=== PATIENT | male | born 1960 | race Caucasian/White ===

== ENCOUNTER 2021-12-08 13:01 | Emergency (ER) | payer MEDICAID, SELFPAY ==
[2021-12-08 13:12] VITALS: BP 123/85; PULSE 74; RESP 16; TEMP 37; O2SAT 99; BMI 22.7
--- NOTE | 2021-12-08 13:15 | XR_ITS ---
FINAL REPORT CLINICAL HISTORY: left rib pain FINDINGS: Two views of the chest were obtained. The heart size is normal. The mediastinum is normal. No acute pulmonary abnormality is identified. There is no pneumothorax. The bony thorax is intact. IMPRESSION: No acute cardiopulmonary process. Reviewed, Interpreted and Dictated by Salty Fernandes III, MD Transcribed by Romulo Parks Authenticated by Salty Fernandes III, MD on 12/08/2021 02:23:35 PM [facility]
--- NOTE | 2021-12-08 14:51 | HMH.EDUTC ---
[facility] Disposition Clinical Impression: Pleurisy Disposition: Home, Self-Care Condition on Discharge: Good Instructions: Pleurisy, DI for Pleurisy Additional Instructions: Drink plenty of fluids. Take tylenol or ibuprofen for pain or fever. Take the medications as directed. Follow up with your regular doctor. GO TO THE ER FOR ANY WORSENING SYMPTOMS Don't start the oral steroids until tomorrow, since you had the shot here today. Prescriptions: methylPREDNISolone [Medrol] 4 mg PO DIRECTED 6 Days #21 packet Transmission Status: Received by [facility] Azithromycin [Z-Tarun 250mg Tab*] 250 mg PO UD DOSE PK #6 tab Transmission Status: Received by [facility] Referrals: Esha Rosales MD [Primary Care Provider] - Time of Disposition: 15:41 Medical Decision Making - Medical Records Medical records reviewed: No: I reviewed the patient's medical records. - Bao Inquiry Pt receiving controlled substance: No Vital Signs: 12/08/21 13:12 12/08/21 15:46 Temperature 98.6 F 98.6 F Temperature Source Oral Pulse Rate 74 Pulse Rate [Right] 74 Respiratory Rate 16 16 Blood Pressure 123/85 Blood Pressure [Right Arm] 123/85 Blood Pressure Mean [Right Arm] 97 Blood Pressure Source [Right Arm] Automatic Cuff Blood Pressure Position [Right Arm] Sitting 02 Sat by Pulse Oximetry 99 Oxygen Delivery Method Room Air - Lab Data Lab results reviewed: Yes: I reviewed the patient's lab results. Lab Results 12/08/21 15:09: Urine Color Yellow, Urine Appearance Clear, Urine pH 6.5, Ur Specific [place] 1.015, Urine Protein Negative, Urine Glucose (UA) Negative, Urine Ketones Negative, Urine Blood Negative, Urine Nitrate Negative, Urine Bilirubin Negative, Urine Urobilinogen 0.2, Ur Leukocyte Esterase Trace Orders (Tests/Meds): ED MEDICATIONS Discontinued Medications Generic Name Dose Route Start Last Admin Trade Name Freq PRN Reason Stop Dose Admin Ketorolac Tromethamine 60 mg 12/08/21 15:28 12/08/21 15:40 Ketorolac 60mg/2ml Vial IM 12/08/21 15:29 60 mg ONCE ONE Administration Methylprednisolone Sodium Succinate 125 mg 12/08/21 15:28 12/08/21 15:41 Methylprednisolone Sod Succ 125mg Vial IM 12/08/21 15:29 125 mg ONCE ONE Administration ORDERS Category Date Time Status Urine Culture Stat Micro 12/08/21 15:26 Results [facility] HPI - General Stated complaint: lt side/back pain Time Seen by Provider: 12/08/21 14:51 Mode of Arrival: Ambulatory Source of Information: Patient Limitations: No Limitations Description of Symptoms (Recalled from Triage Doc. by RN): Pt c/o of pain on left side at the bottom of ribs and under. Pt denies any injury and denies any N/V/D or trouble urinating. Advises the pain has gotten a little worse over the past couple of days. - History of Present Illness Provider Complaint: He c/o left lower back pain. - Related Data Previous Rx's Medication Instructions Recorded Azithromycin [Z-Tarun 250mg Tab*] 250 mg PO UD DOSE PK #6 tab 12/08/21 methylPREDNISolone [Medrol] 4 mg PO DIRECTED 6 Days #21 12/08/21 packet Allergies Allergy/AdvReac Type Severity Reaction Status Date / Time No Known Allergies Allergy Verified 12/08/21 14:07 [facility] History - Hepatitis A Screen Attestation statement:: This patient has been screened for Hepatitis A risk factors. I have reviewed the patient's past medical history: Yes ROS Obtained: Yes All systems reviewed & no additional complaints - Constitutional Constitutional: Denies chills, Denies fever(s) - Eyes Eyes: Denies eye discharge - ENT Ears, Nose, Mouth, and Throat: Denies dizziness, Denies otalgia, Denies sore throat - Cardiovascular Cardiovascular: Denies chest pain - Respiratory Respiratory: Denies chest congestion, Denies cough - Musculoskeletal Musculoskeletal: Reports as per HPI, Reports back pain - Integumentary/Breasts Skin/Breast: Denies r
[2021-12-08 15:28] LABS: Apearance,Urine Clear (Clear); Blood, Urine Negative (Negative); Color,Urine Yellow (Yellow); Glucose,Urine (UA) Negative (Negative); Ketones,Urine Negative (Negative); PH,Urine 6.5 (5.0-8.5); Protein,Urine Negative (Negative); Specific Gravity, Urine 1.015 (1.005-1.030)
[2021-12-08 15:29] LABS: Bilirubin,Urine Negative (Negative); UTC Leukocyte Esterase,Urine Trace (Negative); UTC Nitrate,Urine Negative (Negative); Urobilinogen,Urine 0.2 EU/dl (0.2)
[2021-12-08 15:46] VITALS: BP 123/85; PULSE 74; RESP 16; TEMP 37
== END 2021-12-08 15:56 | disposition home or self-care (01) ==
PROVIDERS: Emergency Provider Nurse Practitioner Family; PCP Nurse Practitioner
DX: R09.1 Pleurisy (principal); M54.9 Dorsalgia, unspecified; Z79.52 Long term (current) use of systemic steroids
CPT/HCPCS: 71046; 81003; 87086; 93041; 96372; 99213; G0463

== ENCOUNTER 2024-02-16 10:29 | Emergency (ER) | payer SELFPAY ==
--- NOTE | 2024-02-16 10:37 | ECG_ITS ---
APPROVED REPORT Exam: Resting ECG HR:68 bpm ECG Measurements Heart Rate 68 AXES OH 139 P 62 QRSd 90 QRS 79 QT 406 T 57 QTc 424 Conclusion Normal sinus rhythm Electronically signed by : BUTCH ROSALES, 02/16/2024 22:37:41
--- NOTE | 2024-02-16 10:41 | ED_ITS ---
Discharge Plan Disposition Patient Disposition: Home, Self-Care Condition: Good Prescriptions Prescriptions: New prednisone 50 mg tablet 50 mg PO DAILY 5 Days Qty: 5 0RF albuterol sulfate 90 mcg/actuation HFA aerosol inhaler 4 inh inhalation Q6H PRN (Reason: shortness of breath or wheezing) Qty: 8.5 0RF doxycycline hyclate 100 mg capsule 100 mg PO BID 5 Days Qty: 10 0RF Referrals Follow up/Referrals: Provider,MD Zena [Primary Care Provider] - See instructions Lan SANCHEZ MD [Staff Physician] - See instructions Activity Restrictions/Add. Instructions Additional Instructions/Restrictions: As we discussed, it appears that your shortness of breath based off the information available at this time is due to likely COPD exacerbation due to smoking. After shared decision-making, discussion of further workup including getting a second heart enzyme level to further evaluate and help to rule out conditions such as a heart attack or blood clot to your lungs, including risks and benefits, you have elected to be discharged at this time. I have prescribed an inhaler, course of steroids, course of antibiotics and placed a referral to a family medicine doctor for you to establish care. Please return with any new or worsening symptoms. Clinical Impressions Clinical Impression: Shortness of breath Instructions Patient Instructions: DI for Chronic Obstructive Pulmonary Disease Discharge ED Provider: Christopher Quiles General Adult HPI General Chief complaint: Shortness of Breath/Dyspnea Stated complaint: soa, shaking Time Seen by Provider: 02/16/24 10:39 History of Present Illness HPI narrative: The patient presents with a chief complaint of chest discomfort and difficulty breathing, particularly in the morning and when lying down for extended periods. The patient reports that these symptoms have been ongoing for a few weeks and have progressively worsened. The patient describes the sensation as having a light weight on their chest when lying down. The patient reports coughing up white phlegm but denies experiencing fever, chills, or leg swelling. The patient also denies any significant pain spreading from the chest area. The patient has not noticed any significant exacerbation of symptoms during physical activity, but occasionally experiences discomfort. The patient has no known medical conditions or daily medications and denies any history of heart conditions. However, the patient admits to being a heavy smoker and has recently increased smoking due to stress. The patient has not been regularly seeing a doctor. Please note that above description of symptoms, in this electronic medical record under categorization of recalled from ER triage doctor by RN are reflective of an initial nursing assessment, however, is not reflective of my full history and physical exam that was personally taken and clarified. Consequentially, this preceding description of symptoms, which may include the patient's categorized chief complaint in the EMR, do not reflect my personal clinical impression, and the ultimate description of history of present illness and patient stated complaints should be deferred to this section of the note. Unless stated otherwise or congruent with this section of the note, additional signs, symptoms, or incongruence should be interpreted as inaccurate with my clinical impression. Related Data Previous Rx's Medication Instructions Recorded albuterol sulfate 90 mcg/actuation 4 inh inhalation Q6H PRN shortness 02/16/24 aerosol inhaler of breath or wheezing #8.5 grams doxycycline hyclate 100 mg capsule 100 mg PO BID 5 days #10 caps 02/16/24 prednisone 50 mg tablet 50 mg PO DAILY 5 days #5 tabs 02/16/24 Allergies Allergy/AdvReac Type Severity Reaction Status Date / Time No Known Allergies Allergy Verified 02/16/24 11:06 [facility] Disclaimer: The information contained in this section may have been updated after the patient was seen, as this information can be updated by other users. Social History Smoking Status: Heavy tobacco smoker alcohol intake: former current occupational status: other Travel in the last 8 weeks: None ROS Obtained: Yes other As per HPI Physical Exam General General appearance: alert and in no apparent distress Head Head exam: atraumatic and normocephalic Eye Eye exam: Present normal appearance Neck Neck exam: Present normal inspection Chest Chest inspection: Present normal inspection and symmetric chest wall rise Respiratory Respiratory exam: Present wheezes; Absent respiratory distress Cardiovascular Cardiovascular exam: Present regular rate and normal rhythm Abdominal Exam Abdominal exam: Present soft Neurological Exam Neurological exam: Present alert and oriented X3 Psychiatric Psychiatric exam: Present normal affect and normal mood Skin Skin exam: Present warm and dry Other Other exam information: bilateral lower extremities without edema Medical Decision Making Medical Records Medical records reviewed: Yes I reviewed the patient's medical records. Bao Inquiry Pt receiving controlled substance: No Vital Signs: 02/16/24 10:43 02/16/24 11:00 02/16/24 11:30 Temperature 98.1 F Temperature Source Oral Pulse Rate 57 L 51 L Pulse Rate [Left] 62 Respiratory Rate 20 Blood Pressure 119/79 129/70 Blood Pressure [Right Radial Artery] 127/81 Blood Pressure Mean Blood Pressure Mean [Right Radial Artery] 96 Blood Pressure Source Blood Pressure Source [Right Radial Artery] Automatic Cuff Blood Pressure Position Blood Pressure Position [Right Radial Artery] Sitting 02 Sat by Pulse Oximetry 97 99 95 Oxygen Delivery Method Room Air Room Air Room Air 02/16/24 12:00 02/16/24 12:39 Temperature 97.9 F Temperature Source Oral Pulse Rate 74 70 Pulse Rate [Left] Respiratory Rate 18 Blood Pressure 122/82 129/81 Blood Pressure [Right Radial Artery] Blood Pressure Mean 94 Blood Pressure Mean [Right Radial Artery] Blood Pressure Source Automatic Cuff Blood Pressure Source [Right Radial Artery] Blood Pressure Position Sitting Blood Pressure Position [Right Radial Artery] 02 Sat by Pulse Oximetry 93 L Oxygen Delivery Method Room Air Lab Data Lab Results 02/16/24 10:40: WBC 7.6, RBC 5.33, Hgb 17.6, Hct 52.2 H, MCV 97.9 H, MCH 33.0 H, MCHC 33.7, RDW 13.9, Plt Count 169, MPV 9.0, Neut % (Auto) 56.1, Lymph % (Auto) 33.5, [place] % (Auto) 6.9, Eos % (Auto) 2.3, Baso % (Auto) 1.3, Neut # (Auto) 4.3, Lymph # (Auto) 2.6, [place] # (Auto) 0.5, Eos # (Auto) 0.2, Baso # (Auto) 0.1, Sodium 140, Potassium 4.2, Chloride 110 H, Carbon Dioxide 26, Anion Gap 8.2, BUN 14, Creatinine 1.00, Estimated Creat Clear 71, Estimated GFR 76, Est GFR ( Amer) 92, Glucose 106 H, Calcium 9.3, Total Bilirubin 0.7, AST 69 H, ALT 65, Alkaline Phosphatase 74, Troponin I < 0.01, NT-Pro-B Natriuret Pep 64.0, Total Protein 7.1, Albumin 4.1, Globulin 3.0, Albumin/Globulin Ratio 1.4, Lipase 144, Procalcitonin 0.128 02/16/24 10:40 02/16/24 10:40 Orders (Tests/Meds): ED MEDICATIONS Discontinued Medications Generic Name Dose Route Start Last Admin Trade Name Freq PRN Reason Stop Dose Admin Albuterol/Ipratropium 3 ml 02/16/24 11:28 02/16/24 11:39 Ipratropium/Albuterol 3 Ml Neb 02/16/24 11:29 3 ml ONCE ONE Administration Methylprednisolone Sodium Succinate 40 mg 02/16/24 11:28 02/16/24 11:39 Methylprednisolone Sod Succ 40mg Vial IV 02/16/24 11:29 40 mg ONCE ONE Administration ORDERS Category Date Time Status XR chest 2V Stat Exams 02/16/24 10:47 Completed BNP [NT Pro Brain Natriuretic Pep.] Stat Lab 02/16/24 10:40 Completed CBC w/Auto Diff [Complete Blood Count Auto Diff] Stat Lab 02/16/24 10:40 Completed CMP [Comprehensive Metabolic Panel] Stat Lab 02/16/24 10:40 Completed Lipase Stat Lab 02/16/24 10:40 Completed Procalcitonin Stat Lab 02/16/24 10:40 Completed Troponin I Q3H Lab 02/16/24 10:40 Completed HEART Score History (anamnesis): Slightly suspicious ECG: Normal Age: 45-65 years Risk factors: 1-2 risk factors Troponin: </= normal limit HEART Score: 2 Medical Decision Narrative: Patient with history and exam per above presenting for evaluation of , chest pain, shortness of breath Diagnoses considered include ACS, COPD exacerbation, pneumonia, referred pain, GERD, heart failure, no clinical evidence of this time to suggest dissection, and insufficient clinical evidence to warrant further evaluation. The on history and physical exam for pulmonary embolism. ED workup and treatment included: ED MEDICATIONS Discontinued Medications Generic Name Dose Route Start Last Admin Trade Name Alonso PRN Reason Stop Dose Admin Albuterol/Ipratropium 3 ml 02/16/24 11:28 02/16/24 11:39 Ipratropium/Albuterol 3 Ml Neb 02/16/24 11:29 3 ml ONCE ONE Administration Methylprednisolone Sodium Succinate 40 mg 02/16/24 11:28 02/16/24 11:39 Methylprednisolone Sod Succ 40mg Vial IV 02/16/24 11:29 40 mg ONCE ONE Administration ORDERS Category Date Time Status XR chest 2V Stat Exams 02/16/24 10:47 Completed BNP [NT Pro Brain Natriuretic Pep.] Stat Lab 02/16/24 10:40 Completed CBC w/Auto Diff [Complete Blood Count Auto Diff] Stat Lab 02/16/24 10:40 Completed CMP [Comprehensive Metabolic Panel] Stat Lab 02/16/24 10:40 Completed Lipase Stat Lab 02/16/24 10:40 Completed Procalcitonin Stat Lab 02/16/24 10:40 Completed Troponin I Q3H Lab 02/16/24 10:40 Completed Labs were independently interpreted by me, significant for Initial troponin undetectable, no leukocytosis, BNP within normal limits, lipase within normal limits Imaging was independently visualized and interpreted by me, significant for . No acute findings Please refer to radiology report for full details. . I reassessed the patient after administration of nebulizer. He reports improvement of symptoms and is requesting to be discharged at this time. I did recommend we obtain 2nd troponin per protocol and discussed with him the risks, including disability and of being discharged without 2nd troponin to further evaluate for ACS. He expresses an understanding and is comfortable with these risks. He will be treated at this time for suspected COPD exacerbation. He was provided a referral to internal medicine to establish care. Return precautions given. Critical Care Critical Care Time Critical Care Time: No
[2024-02-16 10:43] VITALS: BP 127/81; PULSE 62; RESP 20; TEMP 36.7; O2SAT 97; BMI 22.7
--- NOTE | 2024-02-16 10:45 | PC.NURSE ---
PT TO XR
--- NOTE | 2024-02-16 10:47 | XR_ITS ---
FINAL REPORT CLINICAL HISTORY: soa/cough COMPARISON: 12/08/2021 FINDINGS: PA and lateral views of the chest were obtained. The cardiac and mediastinal silhouettes are within normal limits. The lungs are clear. There is no pleural effusion or pneumothorax. No acute osseous abnormality is identified. IMPRESSION: No radiographic evidence of acute cardiac or pulmonary disease. Reviewed, Interpreted and Dictated by India Bowles MD Transcribed by Olya Barbosa Authenticated and [facility]
--- NOTE | 2024-02-16 10:49 | PC.NURSE ---
DR ALAS AT BEDSIDE
[2024-02-16 11:00] VITALS: BP 119/79; PULSE 57; O2SAT 99
--- NOTE | 2024-02-16 11:00 | PC.NURSE ---
PT RETURNED FROM XR
[2024-02-16 11:05] LABS: Chloride 110 mmol/L (98-107); Potassium 4.2 mmoL/L (3.5-5.1); Sodium 140 mmol/L (136-145)
[2024-02-16 11:08] LABS: Alanine Aminotransferase 65 U/L (12-78); Albumin Level 4.1 g/dl (3.5-5.0); Albumin/Globulin Ratio 1.4 (1.1-1.8); Alkaline Phosphatase 74 U/L (38-126); Anion Gap 8.2 mEq/L (5-15); Aspartate Amino Transferase 69 U/L (17-59); Bilirubin,Total 0.7 mg/dl (0.2-1.3); Blood Urea Nitrogen 14 mg/dl (9-20); Calcium 9.3 mg/dl (8.4-10.2); Carbon Dioxide 26 mmol/L (22.0-30.0); Creatinine Clearance Estimated 71 mL/min (50-200); Estimated Glomerular Filt Rate 76 ml/min (>60); GFR (African American) 92 ML/MIN (>60); Glucose 106 mg/dl (74-100); Lipase 144 U/L (23-300); Total Protein,Serum 7.1 g/dl (6.3-8.2)
[2024-02-16 11:15] LABS: Basophils # 0.1 K/mm3 (0-0.2); Basophils % 1.3 % (0.1-2.0); Eosinophils # 0.2 K/mm3 (0.0-0.4); Eosinophils % 2.3 % (0.1-12.0); Hematocrit 52.2 % (42.0-52.0); Hemoglobin 17.6 g/dL (14.1-18.0); Lymphocytes # 2.6 K/mm3 (0.7-4.5); Lymphocytes % 33.5 % (10-50); Mean Corpuscular HGB Conc 33.7 g/dL (31.8-35.4); Mean Corpuscular Volume 97.9 fl (80-94); Monocytes # 0.5 K/mm3 (0.1-1.0); Monocytes % 6.9 % (1.7-9.3); Neutrophils # 4.3 K/mm3 (1.8-7.8); Neutrophils % 56.1 % (37.0-80.0); Platelet Count 169 K/mm3 (142-424); Red Blood Count 5.33 M/mm3 (4.60-6.20); Red Cell Distribution Width 13.9 % (11.5-17.5); White Blood Count 7.6 K/mm3 (4.8-10.8)
[2024-02-16 11:23] LABS: Troponin I < 0.01 ng/ml (0.00-0.034)
[2024-02-16 11:25] LABS: Procalcitonin 0.128 ng/mL (0.0-2.0)
[2024-02-16 11:30] VITALS: BP 129/70; PULSE 51; O2SAT 95
[2024-02-16] MEDS: METHYLPREDNISOLONE SOD SUCC 40MG VIAL 40 MG IV (11:39)
[2024-02-16] MEDS: IPRATROPIUM/ALBUTEROL 3 ML NEB IH (11:39)
--- NOTE | 2024-02-16 11:40 | PC.NURSE ---
PT MEDICATED PER EMAR, CALL LIGHT WITHIN REACH. NO NEEDS AT THIS TIME
[2024-02-16 12:00] VITALS: BP 122/82; PULSE 74; O2SAT 93
--- NOTE | 2024-02-16 12:14 | PC.NURSE ---
DR ALAS AT BEDSIDE TO REEVALUATE PT
[2024-02-16 12:39] VITALS: BP 129/81; PULSE 70; RESP 18; TEMP 36.6; O2SAT 94
== END 2024-02-16 12:40 | disposition home or self-care (01) ==
PROVIDERS: Emergency Provider Emergency Medicine
DX: R06.02 Shortness of breath (principal); R07.89 Other chest pain; F17.210 Nicotine dependence, cigarettes, uncomplicated
CPT/HCPCS: 71046; 80053; 83690; 83880; 84145; 84484; 85025; 93005; 96374; 99284; J2919; J7620